=== PATIENT | female | born 1990 | race African-American/Black ===

== ENCOUNTER 2019-05-01 20:58 | Emergency (ER) | payer SELFPAY ==
--- NOTE | 2019-05-01 22:28 | ER Document Report ---
HPI - HPI Time Seen by Provider: 05/01/19 22:26 Pain Level: 5 Notes: Patient is an otherwise healthy 28-year-old female presenting with concern for possible insect bite or abscess to her right [place] area. Patient reports she first noticed this approximately 2 days ago. She reports it now appears that it needs to be drained. She denies any fevers or other illness. - REPRODUCTIVE Reproductive: DENIES: : Past Medical History - General Information source: Patient - Social History Smoking Status: Current Every Day Smoker Chew tobacco use (# tins/day): No Frequency of alcohol use: None Drug Abuse: None Family History: Reviewed & Not Pertinent Patient has suicidal ideation: No Patient has homicidal ideation: No - Medical History Medical History: Negative Surgical Hx: Negative - Immunizations Immunizations up to date: Yes Vertical Provider Document - CONSTITUTIONAL Notes: PHYSICAL EXAMINATION: GENERAL: Well-appearing, well-nourished and in no acute distress. HEAD: Atraumatic, normocephalic. EYES: Pupils equal round extraocular movements intact, conjunctiva are normal. ENT: Nares patent NECK: Normal range of motion LUNGS: No respiratory distress Musculoskeletal: Normal range of motion NEUROLOGICAL: Normal speech, normal gait. PSYCH: Normal mood, normal affect. SKIN: Small 1 cm x 1 cm area of induration with mild fluctuance noted over right anterior [place]. - INFECTION CONTROL TRAVEL OUTSIDE OF THE [place] IN LAST 30 DAYS: No Course - Re-evaluation Re-evalutation: Topical lidocaine was applied, abscess was cleaned with ChloraPrep and an 18G needle was inserted into the very tiny abscess that had formed over her [place]. A culture was collected. A small amount of purulent drainage was obtained. A dressing was placed. Patient was encouraged to apply warm compresses to the area and to take antibiotics as prescribed. She was invited to return to the emergency department if the area worsened in any way. Patient and family member verbalized understanding and agreement with this plan. The patient's emergency department workup and current diagnosis were explained to the patient and or family. Follow-up instructions were provided. Medications if prescribed were discussed. Instructions for when to return to the emergency department including specific worrisome symptoms were discussed with the patient and/or family. - Vital Signs Vital signs: Temp Pulse Resp BP Pulse Ox 98.3 F 96 18 143/90 H 100 05/01/19 21:06 05/01/19 21:06 05/01/19 21:06 05/01/19 21:06 05/01/19 21:06 Discharge - Discharge Clinical Impression: Abscess Condition: Stable Disposition: HOME, SELF-CARE Additional Instructions: Abscess You have an abscess (boil). This a pus-forming infection, usually due to staph. Some boils may be left to drain on their own, but most require lancing. We lanced this today with a needle and sent a culture. From the time the tender lump first appears, it may be three or four days before the abscess is ready to jamila. Local heat and rest help at this stage of treatment. An antibiotic may prevent spread of the infection. The wound will heal with surprisingly little scar. Depending on the size and location of an abscess, healing can take one to four weeks. You may shower and wash the area around the incision site two or three times a day. Antibiotics may be prescribed, but are usually not necessary after an abscess has been drained. If you develop fever, chilling, worsening pain, or increasing swelling in the area, call the doctor or return immediately. Please take antibiotics as prescribed. Apply warm compresses to the area 4 times daily. Take ibuprofen 600 mg every 6 hours for pain. Return to the emergency department with any new or worsening symptoms. Prescriptions: Sulfamethoxazole/Trimethoprim [Bactrim Ds Tablet] 1 tab PO BID #14 tablet
[2019-05-01] MEDS ORDERED: LIDOCAINE 4% TRANSPARENT DRESSING 5 GM KIT TP ONE (22:41)
[2019-05-01] MEDS ORDERED: SULFAMETHOXAZOLE/TRIMETHOPRIM 800-160 MG TABLET PO ONE (22:42)
[2019-05-01] MEDS ORDERED: IBUPROFEN 600 MG TABLET PO ONE (23:29)
[2019-05-01 23:43] VITALS: BP 137/100
== END 2019-05-01 23:40 | disposition home or self-care (01) ==
LOC: ER 20:58
DX: L02.419 Cutaneous abscess of limb, unspecified (principal); F17.200 Nicotine dependence, unspecified, uncomplicated
CPT/HCPCS: 99282; 87070; 87205; 87077; J3490; 87186